=== PATIENT | male | born 1970 | race Caucasian/White ===

== ENCOUNTER → 2017-05-11 | Outpatient (CLI) | payer BC ==
[~2017-05-11] MED LIST: ALEV220T26 PO; ASPI1TAB PO; BUPR150T3 PO; GLIP10TA6 PO; JARD1TAB PO; LISI30TA4 PO; METF10004 PO; MICR1TAB5 PO; SIMV40TA2 PO; TIZA4CAP3 PO; TOPI1CAP2 PO; VITA1CAP40 PO
== END ==
LOC: M SMT 11:41
PROVIDERS: ATTEND Family Medicine
DX: E13.9 Other specified diabetes mellitus without complications (principal); E78.5 Hyperlipidemia, unspecified

== ENCOUNTER → 2017-05-16 | Outpatient (CLI) | payer BC ==
--- NOTE | 2017-05-16 23:55 | REP ---
Clinical: Pain with history of undescended right testicle. Technique: Real time ricci scale and color Doppler evaluation using linear high frequency transducer. Findings: The right testicle is undescended identified within the inguinal canal may strain 3.6 x 1.5 x 2.1 cm appearing homogeneous in echotexture with peripheral vascularity noted and no obvious right testicular mass lesion. No right-sided hydrocele. No right-sided varicoceles. The left testicle measures 4.3 x 1.6 x 2.5 cm and appears normal in contour, size, echogenicity, and vascularity without evidence for intratesticular mass lesion, infectious/inflammatory process or torsion. Left epididymis is grossly unremarkable but limited in evaluation due to technical factors and body habitus. No left-sided hydrocele. No left-sided varicoceles. Impression: 1. Undescended right testicle as described above consistent with history. 2. Essentially normal left testicle and hemiscrotum. Signed by Luis Martinez MD 05/16/2017 11:46 P
== END ==
LOC: M SMT 09:23
PROVIDERS: ATTEND Nurse Practitioner Women's Health
DX: Q53.9 Undescended testicle, unspecified (principal)

== ENCOUNTER 2017-08-08 06:03 | Day surgery (SDC) | payer BC ==
[~2017-08-08] VITALS: Ht 172.7 cm; Wt 143.3 kg
[2017-08-08] MEDS ORDERED: LIDOCAINE 1% MDV 20ML VIAL SQ PRN (06:15)
[2017-08-08] MEDS: LR 1,000 ML IV SCH ×2 (06:57→09:02)
[2017-08-08] MEDS ORDERED: BUPIVACAINE HCL 0.25% 30 ML VIAL As Ordered ONE (07:17)
[2017-08-08] MEDS ORDERED: LIDOCAINE 2% MDV 20 ML VIAL As Ordered ONE (07:18)
[2017-08-08] MEDS ORDERED: MIDAZOLAM INJ 2 MG/2 ML VIAL (J2250) As Ordered ONE (07:23)
[2017-08-08] MEDS ORDERED: fentaNYL 250 MCG/5 ML INJECTION (J3010) As Ordered ONE (07:31)
[2017-08-08] MEDS ORDERED: ONDANSETRON 4MG/2ML VIAL (J2405) As Ordered ONE (08:02)
[2017-08-08] MEDS ORDERED: ePHEDrine SULFATE 25 MG/5 ML(5MG/ML) SYRINGE As Ordered ONE (08:02)
[2017-08-08] MEDS ORDERED: PHENYLephrine HCL 500 MCG/5 ML (100MCG/ML) SYRINGE (J2370) As Ordered ONE (08:02)
[2017-08-08] MEDS ORDERED: dexameTHASONE 4 MG/ML 1ML VIAL (J1100) As Ordered ONE (08:02)
[2017-08-08] MEDS ORDERED: KETOROLAC 60 MG/2 ML VIAL (J1885) As Ordered ONE (08:02)
[2017-08-08] MEDS ORDERED: PROPOFOL 200 MG/20 ML VIAL As Ordered ONE (08:02)
[2017-08-08] MEDS ORDERED: LIDOCAINE 2% INJ 100 MG/5 ML SDV (FOR ANES.) As Ordered ONE (08:02)
[2017-08-08] MEDS ORDERED: ROCURONIUM BROMIDE 50 MG/5 ML VIAL/SYRINGE As Ordered ONE (08:02)
[2017-08-08] MEDS ORDERED: SUCCINYLCHOLINE 100 MG/5 ML SYRINGE (J0330) As Ordered ONE (08:02)
[2017-08-08] MEDS ORDERED: GLYCOPYRROLATE INJ 0.2 MG/ML 2 ML VIAL As Ordered ONE (08:30)
[2017-08-08] MEDS ORDERED: NEOSTIGMINE 10 MG/10 ML VIAL (J2710) As Ordered ONE (08:30)
[2017-08-08] MEDS ORDERED: ACETAMINOPHEN 650MG ER TAB (TYLENOL ARTHRITIS) PO PRN (10:00)
[2017-08-08] MEDS ORDERED: ONDANSETRON 4MG/2ML VIAL (J2405) IV PRN (10:15)
[2017-08-08] MEDS ORDERED: LR 1,000 ML IV SCH (10:15)
[2017-08-08] MEDS ORDERED: fentaNYL 100 MCG/2 ML INJECTION (J3010) IV PRN (10:15)
[2017-08-08] MEDS ORDERED: TYLE650T35 PO (10:41)
[2017-08-08] MEDS ORDERED: BACT800T5 PO (10:41)
[2017-08-08 10:49] VITALS: BP 150/67
[2017-08-08] MEDS ORDERED: BACTRIM 160MG/800MG DS TAB PO SCH (21:00)
--- NOTE | 2017-08-09 07:33 | RO ---
DATE OF PROCEDURE: 08/08/2017 PREOPERATIVE DIAGNOSIS: Right undescended testicle. POSTOPERATIVE DIAGNOSIS: Right undescended testicle, plus atrophic right testicle. PROCEDURE: Right orchiectomy. SURGEON: Titi Cobian MD CHILD DAY CARE PROVIDER: None. ANESTHESIA: General. FINDINGS: Right atrophic testicle and undescended at the level of the internal inguinal ring. COMPLICATIONS: None. ESTIMATED BLOOD LOSS: Minimal. HISTORY OF PRESENT ILLNESS: 47-year-old male patient that has an undescended testicle on the right side. He has pain. He cannot palpate it. He is morbidly obese. For this reason, he has consented for a right orchiectomy. DESCRIPTION OF PROCEDURE: In a patient in supine position under general anesthesia in supine position after prepping and draping the area of concern, which included the entire genitalia and abdomen, we started by doing an incision of about 5 cm in length, transverse incision in the right inguinal area on top of the external inguinal ring. Through this incision with electric Bovie cautery, we dissected the and Chantell's fascia. We then identified the testicle by pushing abdominal wall. The testicle could actually be identified at the external inguinal ring. At that moment and time, we grabbed the testicle and dissected all the attachments to the testicle to the pelvic area and testis attached to the pelvic area. At that moment and time, we opened the external ring for about 1 cm and then we could actually dissect the spermatic cord. We then proceeded to dissect the spermatic cord, open the tunic vaginalis, identified an atrophic testicle and identified the vas deferens, clamped it, cut it, ligated times two with #0 silk ties and then clamped cord times two with Paulette clamps and cut it in the middle and suture ligated the stump of the spermatic cord with a #0 silk stitch times two and a silk tie times two also. We then proceeded to control hemostasis with electrofulguration of any bleeding vessels from the subcutaneous fat. We then closed the subcutaneous fat with #3-0 chromic separate stitches and then the skin with #4-0 Monocryl in a running fashion subcuticular. We placed Steri-Strips, Telfa and Tegaderm on top of the wound. PLAN: The patient will go home today. He will take antibiotics, Bactrim Double Strength one tablet by mouth twice a day for 7 days and have Tylenol for pain. He cannot carry heavy weight lifting above 20 pounds for 1 month. He will followup at [facility] in about 2 weeks. There were no complications during surgery. Specimen was sent as right atrophic testicle to permanent pathology analysis.
== END 2017-08-08 10:53 | disposition home or self-care (01) ==
LOC: M SDC 06:03
PROVIDERS: ATTEND Urology
DX: Q53.9 Undescended testicle, unspecified (principal); E66.01 Morbid (severe) obesity due to excess calories; E11.9 Type 2 diabetes mellitus without complications; I10 Essential (primary) hypertension; Z79.82 Long term (current) use of aspirin; E78.5 Hyperlipidemia, unspecified; F32.9 Major depressive disorder, single episode, unspecified; M54.5 Low back pain; Z79.899 Other long term (current) drug therapy
CPT/HCPCS: 36415; 54520; 86850; 86900; 86901; 88305; J0330; J0690; J1100; J1885; J2250; J2370; J2405; J2710; J3010

== ENCOUNTER → 2017-08-20 | Outpatient (REF) | payer BC ==
[~2017-08-20] MED LIST changes: +BACT800T5 PO; +TYLE650T35 PO
== END ==
LOC: M SMT 17:13
PROVIDERS: ATTEND Nurse Practitioner Women's Health
DX: R30.0 Dysuria (principal)

== ENCOUNTER → 2017-09-11 | Outpatient (REF) | payer BC | LOC: M SMT 12:19 | PROVIDERS: ATTEND Urology | DX: Q53.10 Unspecified undescended testicle, unilateral (principal) ==

== ENCOUNTER → 2017-10-06 | Outpatient (CLI) | payer BC ==
[2017-10-08 11:17] LABS: PROLACTIN 17.9 NG/ML (2.1-17.7)
[2017-10-08 11:18] LABS: LUTEINIZING HORMONE 17.2 mIU/mL (1.5-9.3)
[2017-10-08 11:19] LABS: ESTRADIOL 39.7 PG/ML (<39.8)
[2017-10-09 14:14] LABS: SEX HORMONE BINDING GLOBULIN 42.2 nmol/L (16.5-55.9); TESTOSTERONE FREE (DIRECT) 6.8 pg/mL (6.8-21.5)
== END ==
LOC: M LAB 11:31
DX: N52.9 Male erectile dysfunction, unspecified (principal)
CPT/HCPCS: 83001

== ENCOUNTER → 2018-04-16 | Outpatient (REF) | LOC: M SMT 13:24 | DX: Z02.71 Encounter for disability determination (principal) ==

== ENCOUNTER → 2018-05-01 | Outpatient (REF) | LOC: M SMT 09:00 | DX: Z00.00 Encounter for general adult medical examination without abnormal findings (principal) ==

== ENCOUNTER → 2022-02-26 | Outpatient (CLI) | payer BC, OTHER ==
[~2022-02-26] MED LIST changes: +ACET650T61 PO; +AMLO1TAB24 PO; -ASPI1TAB PO; +ASPI81TA26 PO; +BUPR150T12 PO; -BUPR150T3 PO; +ERGO500029 PO; +HYDR12CA PO; +LISI40TA4 PO; +NAPR220C23 PO; -SIMV40TA2 PO; +SIMV40TA20 PO; +TIZA4CAP PO; -TIZA4CAP3 PO; +TRUL0.5I SC; -TYLE650T35 PO; +VENL50TA2 PO; +VITA-243 PO; -VITA1CAP40 PO; +VITA50005 PO; +ZINC1TAB2 PO; +vitamin b1 PO
== END ==
LOC: M LABSMTC 10:20
PROVIDERS: ATTEND Anesthesiology
DX: Z01.812 Encounter for preprocedural laboratory examination (principal); Z20.822 Contact with and (suspected) exposure to COVID-19

== ENCOUNTER 2022-03-01 09:50 | Day surgery (SDC) | payer MEDICARE, OTHER ==
[~2022-03-01] VITALS: Ht 172.7 cm; Wt 126.6 kg
[~2022-03-01 09:50] MED LIST changes: +LIDOCAINE 2% 100MG/5ML SDV (FOR ANES.) As Ordered ONE; +NS 1,000 ML IV ONE; +fentaNYL 100 MCG/2 ML INJECTION As Ordered ONE; +propofoL 500 MG/50 ML VIAL As Ordered ONE
[2022-03-01] MEDS ORDERED: propofoL 200 MG/20 ML VIAL As Ordered ONE (10:43)
[2022-03-01 11:17] VITALS: BP 110/70
== END 2022-03-01 11:16 | disposition home or self-care (01) ==
LOC: M OPP 09:50
PROVIDERS: ATTEND Internal Medicine Gastroenterology
DX: D12.0 Benign neoplasm of cecum (principal); K63.5 Polyp of colon; K64.0 First degree hemorrhoids; R19.5 Other fecal abnormalities; B96.81 Helicobacter pylori [H. pylori] as the cause of diseases classified elsewhere; K29.50 Unspecified chronic gastritis without bleeding; Z79.02 Long term (current) use of antithrombotics/antiplatelets; Z79.1 Long term (current) use of non-steroidal anti-inflammatories (NSAID); Z79.84 Long term (current) use of oral hypoglycemic drugs; Z79.899 Other long term (current) drug therapy
CPT/HCPCS: 43239; 45385; 88305; J3010

== ENCOUNTER → 2024-10-06 | Outpatient (CLI) | payer MEDICARE ==
[~2024-10-06] MED LIST changes: +GLIP10TA15 PO; -GLIP10TA6 PO; -LIDOCAINE 2% 100MG/5ML SDV (FOR ANES.) As Ordered ONE; -NS 1,000 ML IV ONE; -fentaNYL 100 MCG/2 ML INJECTION As Ordered ONE; -propofoL 500 MG/50 ML VIAL As Ordered ONE
== END ==
LOC: M WHC 13:39
PROVIDERS: ATTEND Family Medicine
DX: M89.9 Disorder of bone, unspecified (principal); M85.88 Other specified disorders of bone density and structure, other site

== ENCOUNTER 2025-01-21 06:35 | Day surgery (SDC) | payer MEDICARE ==
[~2025-01-21] VITALS: Ht 172.7 cm; Wt 117.7 kg
[~2025-01-21 06:35] MED LIST changes: +AMLO1TAB25 PO; +DULO1CAP6 PO; +EZET10TA21 PO; +GABA-1172 PO; +GLIP2.5T52 PO; +INDA2.5T2 PO; +LOSA50TA28 PO; +ROSU40TA81 PO
[2025-01-21] MEDS ORDERED: LIDOCAINE 2% 100MG/5ML SDV (FOR ANES.) As Ordered ONE (06:55)
[2025-01-21] MEDS ORDERED: propofoL 200 MG/20 ML VIAL As Ordered ONE (06:56)
[2025-01-21] MEDS ORDERED: fentaNYL 100 MCG/2 ML INJECTION As Ordered ONE (07:16)
[2025-01-21 08:35] VITALS: TEMP 99.1
[2025-01-21 08:52] VITALS: BP 121/57; O2SAT 97
== END 2025-01-21 09:05 | disposition home or self-care (01) ==
LOC: M OPP 06:35
PROVIDERS: ATTEND Internal Medicine Gastroenterology
DX: Z12.11 Encounter for screening for malignant neoplasm of colon (principal); D12.3 Benign neoplasm of transverse colon; D12.0 Benign neoplasm of cecum; K21.00 Gastro-esophageal reflux disease with esophagitis, without bleeding; K64.0 First degree hemorrhoids; K29.50 Unspecified chronic gastritis without bleeding; K57.30 Diverticulosis of large intestine without perforation or abscess without bleeding; Z86.0100 Personal history of colon polyps, unspecified; I10 Essential (primary) hypertension; E11.9 Type 2 diabetes mellitus without complications; Z79.899 Other long term (current) drug therapy; Z79.84 Long term (current) use of oral hypoglycemic drugs; Z79.82 Long term (current) use of aspirin
CPT/HCPCS: 43239; 45385; 88305; J3010